=== PATIENT | male | born 1985 | race Caucasian/White ===

== ENCOUNTER 2017-07-19 12:18 | Emergency (ER) | payer OTHER ==
[~2017-07-19] VITALS: Ht 170.2 cm; Wt 61.7 kg
[2017-07-19 13:10] LABS: HEMATOCRIT 40.2 % (38.0-50.0); HEMOGLOBIN 14.1 G/DL (12.5-16.6); MCH 30.7 PG (29.0-34.0); MCHC 35.1 G/DL (30.0-36.0); MCV 87.6 FL (86-99); PLATELET COUNT 335 K/uL (156-360); RBC DIS.WIDTH-CV 12.3 % (11.8-14.6); RBC DIS.WIDTH-SD 39.8 % (39-53); RED BLOOD COUNT 4.59 M/uL (4.00-5.50); WHITE BLOOD COUNT 9.4 K/uL (4.1-10.2)
[2017-07-19 13:20] LABS: CHLORIDE 106 mEq/L (99-109); POTASSIUM 4.4 mEq/L (3.7-5.4); SODIUM 139 mEq/L (136-147)
[2017-07-19 13:21] LABS: GLUCOSE 95 mg/dL (70-99)
[2017-07-19 13:25] LABS: CREATININE 0.8 mg/dL (0.6-1.3); GFR ESTIMATE (CALCULATED) > 59 mL/min/ (58.99-99999)
[2017-07-19 13:26] LABS: UREA NITROGEN (BUN) 9 mg/dL (9-23)
[2017-07-19] MEDS ORDERED: COLACE100 MG PO (17:49)
[2017-07-19] MEDS ORDERED: ZOFRAN ODT4 MG PO (17:55)
[2017-07-19 18:43] VITALS: BP 117/72
== END 2017-07-19 18:53 | disposition home or self-care (01) ==
LOC: EME 12:18
DX: K92.1 Melena (principal); K76.0 Fatty (change of) liver, not elsewhere classified; R10.12 Left upper quadrant pain; Z87.891 Personal history of nicotine dependence
CPT/HCPCS: 74177; 80048; 85027; 86850; 86900; 86901; 99281; 99285; J1885; J2405; J7030